=== PATIENT | female | born 1955 | race Caucasian/White ===

== ENCOUNTER 2023-07-23 08:44 | Outpatient (OUT) | payer MEDICARE, OTHER, SELFPAY ==
--- NOTE | 2023-07-23 | XR_ITS ---
The [place] [address] Patient Name: BENJAMÍN HORAN MRN: [id number] date: 1955 Sex: F Assigned Patient Location: Current Patient Location: Accession/Order Number: [id number] Exam Date: 07/23/2023 09:00 Report Date: 07/24/2023 04:35 At the request of: RENETTA GEE Procedure: XR lumbar spine min 4V EXAMINATION: XR lumbar spine min 4V HISTORY: LUMBAR SPINE PAIN COMPARISON: No relevant comparison available. FINDINGS: BONES: Moderate right convex curvature of lumbar spine with 11 mm right lateral listhesis and 9 mm anterior listhesis of L3 on 4. No significant change during flexion and extension. Left lateral wedging of L3; remote compression fracture versus degenerative. Moderate degenerative facet arthropathy L2-L3 through L5-S1 resulting in bone encroachment on the neural foramen. DISC SPACES: Moderate-marked narrowing at all lumbar levels. PARASPINOUS: Negative. No paraspinous abnormality is seen. OTHER: Negative. XR/XR lumbar spine min 4V IMPRESSION: 1. Multilevel marked degenerative changes of lumbar spine as detailed above. Electronically authenticated by: GABRIELA VINES Date: 07/24/2023 04:35
--- NOTE | 2023-07-23 | XR_ITS ---
The [address] [address] Patient Name: BENJAMÍN HORAN MRN: [id number] date: 1955 Sex: F Assigned Patient Location: Current Patient Location: Accession/Order Number: [id number] Exam Date: 07/23/2023 09:00 Report Date: 07/24/2023 04:31 At the request of: RENETTA GEE Procedure: XR cervical spine w flex/ext EXAMINATION: XR cervical spine w flex/ext HISTORY: CERVICAL SPINE PAIN COMPARISON: XR cervical spine 08/08/2015 FINDINGS: BONES: Developmental 3 mm anterior listhesis of C3 on 4 during flexion. Development of 2 mm retrolisthesis of C4 on 5 during extension. Slight reversal of normal lordotic curvature of cervical spine in neutral position. Multilevel moderate degenerative facet arthropathy. No fracture. DISC SPACES: Moderate-marked narrowing C4-C5, C5-C6, C6-C7 with prominent endplate osteophytes. Suspect bone encroachment on the neural foramen bilaterally at most cervical levels. PARASPINOUS: Negative. No paraspinous abnormality is seen. OTHER: Negative. XR/XR cervical spine w flex/ext IMPRESSION: 1. Multilevel degenerative disc disease and facet arthropathy; slightly progressed since prior study. 2. Development of anterior and posterior listhesis during flexion and extension as detailed above. Electronically authenticated by: GABRIELA VINES Date: 07/24/2023 04:31
== END 2023-07-23 08:45 | disposition home or self-care (01) ==
LOC: EC 08:44
PROVIDERS: PCP Internal Medicine; Visit Provider Orthopaedic Surgery Orthopaedic Surgery of the Spine
DX: M54.50 Low back pain, unspecified (principal); M54.2 Cervicalgia; M51.36 Other intervertebral disc degeneration, lumbar region
CPT/HCPCS: 72052; 72110

== ENCOUNTER 2023-10-12 13:42 | Outpatient (OUT) | payer MEDICARE, OTHER, SELFPAY ==
--- NOTE | 2023-10-12 | XR_ITS ---
[address] [address] Patient Name: BENJAMÍN HORAN MRN: [id number] date: 1955 Sex: F Assigned Patient Location: Current Patient Location: Accession/Order Number: [id number] Exam Date: 10/12/2023 14:29 Report Date: 10/15/2023 05:39 At the request of: MICHAELA TERRELL Procedure: XR ankle RT min 3V PROCEDURE: XR ankle RT min 3V, XR foot RT min 3V HISTORY: RIGHT ANKLE PAIN COMPARISON: XR foot right 02/05/2022, XR ankle right 06/12/2021 FINDINGS: BONES:Prior calcaneal osteotomy and repair. Mechanical fusion of the talocalcaneal and talonavicular joints. Mechanical fusion of the first tarsal-metatarsal joint. No appreciable hardware fracture loosening. No acute bone fracture or dislocation. Loss of plantar arch, unchanged. Narrowing of the tibiotalar joint. Mild bunion formation. Large calcaneal plantar spur. SOFT TISSUES:Soft tissue swelling over dorsum of foot. EFFUSION:None visible. OTHER: Negative. XR/XR ankle RT min 3V IMPRESSION: 1. Stable surgical changes and degenerative changes. No new bone or hardware findings. 2. New dorsal soft tissue swelling of uncertain etiology. Electronically authenticated by: GABRIELA VINES Date: 10/15/2023 05:39
--- NOTE | 2023-10-12 | XR_ITS ---
[address] [address] Patient Name: BENJAMÍN HORAN MRN: [id number] date: 1955 Sex: F Assigned Patient Location: Current Patient Location: Accession/Order Number: [id number] Exam Date: 10/12/2023 14:10 Report Date: 10/15/2023 05:39 At the request of: MICHAELA TERRELL Procedure: XR foot RT min 3V PROCEDURE: XR ankle RT min 3V, XR foot RT min 3V HISTORY: RIGHT ANKLE PAIN COMPARISON: XR foot right 02/05/2022, XR ankle right 06/12/2021 FINDINGS: BONES:Prior calcaneal osteotomy and repair. Mechanical fusion of the talocalcaneal and talonavicular joints. Mechanical fusion of the first tarsal-metatarsal joint. No appreciable hardware fracture loosening. No acute bone fracture or dislocation. Loss of plantar arch, unchanged. Narrowing of the tibiotalar joint. Mild bunion formation. Large calcaneal plantar spur. SOFT TISSUES:Soft tissue swelling over dorsum of foot. EFFUSION:None visible. OTHER: Negative. XR/XR foot RT min 3V IMPRESSION: 1. Stable surgical changes and degenerative changes. No new bone or hardware findings. 2. New dorsal soft tissue swelling of uncertain etiology. Electronically authenticated by: GABRIELA VINES Date: 10/15/2023 05:39
== END 2023-10-12 13:43 | disposition home or self-care (01) ==
LOC: EC 13:42
PROVIDERS: PCP Internal Medicine; Visit Provider Physician Assistant
DX: M79.671 Pain in right foot (principal); M25.571 Pain in right ankle and joints of right foot; Z98.890 Other specified postprocedural states
CPT/HCPCS: 73610; 73630